=== PATIENT | female | born 1955 | race Caucasian/White ===

== ENCOUNTER 2019-05-16 08:57 | Day surgery (SDC) | payer BC, OTHER ==
[~2019-05-16] VITALS: Ht 167.6 cm; Wt 61.0 kg
[2019-05-16] VITALS (15 sets, daily range): BP systolic 108–153; BP diastolic 50–81; PULSE 56–70; RESP 16–24; Ht 167.6 cm; Wt 61.0 kg
[~2019-05-16 08:57] MED LIST: ASPI-903 PO; CEFAZOLIN 2 GM/50 ML (PMX) 50 ML IVPB ONE; SOD CHLORIDE 0.9% 1,000 ML IV SCH
[2019-05-16] MEDS ORDERED: POLYMYXIN/BACITRACIN 1L IRRIG ONE (10:02)
--- NOTE | 2019-05-16 10:10 | PREAC ---
Date/Time of Note Date/Time of Note DATE: 05/16/19 TIME: 10:09 Anesthesia Eval and Record Evaluation Time Pre-Procedure Interview DATE: 05/16/19 TIME: 10:09 Age 63 Sex female NPO: 8 hrs Preoperative diagnosis left inguinal hernia Planned procedure open left inguinal hernia with mesh Past Medical History Past Medical History: Includes Cardio: Other (EF 60%) Surgery & Anesthesia Issues No known issue Meds Anticoagulation: No Beta Forrest within 24 hr: No Reason Beta Forrest not given: Pt. not on B-Forrest Reported Medications Aspirin* (Aspirin* Chew) 81 Mg Tab.chew, 81 MG PO DAILY, TAB.CHEW 05/16/19 Current Medications Sodium Chloride 1,000 ml @ 75 mls/hr [id number] IV ; Start 05/16/19 at 06:00; Stop 05/16/19 at 20:00 Meds reviewed: Yes Allergies Coded Allergies: No Known Drug Allergy (Verified Allergy, Unknown, 05/16/19) Allergies Reviewed: Yes Labs/Studies Labs Reviewed: Reviewed by anesthesiologist test: N/A Studies: ECG (sr), CXR (hyperinflation) Pre-procedure Exam Last vitals Vital Signs Date Temp Pulse Resp B/P (MAP) Pulse Ox O2 O2 Flow FiO2 Time Delivery Rate 05/16/19 98.3 56 16 108/59 95 Room Air 09:50 (75) Airway: Adequate mouth opening Mallampati: Mallampati I Teeth: Normal Lung: Normal Heart: Normal ASA Physical Status ASA physical status: 2 Emergency: None Planned Anesthetic General/MAC: ETT Nerve block: TAP (left) Planned Pain Management Single shot nerve block, Parenteral pain med Pre-operative Attestations Prior to commencing anesthesia and surgery, the patient was re-evaluated, there was verification of: *The patient's identity *The results of appropriate recent lab work and preoperative vital signs *The above evaluation not changing prior to induction *Anesthetic plan, risk benefits, alternative and complications discussed with patient/family; questions answered; patient/family understands, accepts and wishes to proceed. BHAVESH FOSTER MD May 16, 2019 10:10
[2019-05-16] MEDS ORDERED: PROPOFOL 20 ML ONE (10:16)
[2019-05-16] MEDS ORDERED: NEOSTIGMINE 3 MG/3 ML SYRINGE ONE (10:16)
[2019-05-16] MEDS ORDERED: ROPIVACAINE 0.2% 20 ML VIAL ONE (10:16)
[2019-05-16] MEDS ORDERED: ROCURONIUM 50 MG INJ ONE (10:16)
[2019-05-16] MEDS ORDERED: GLYCOPYRROLATE 0.4 MG INJ ONE (10:16)
[2019-05-16] MEDS ORDERED: METOCLOPRAMIDE 10 MG INJ ONE (10:16)
[2019-05-16] MEDS ORDERED: ONDANSETRON 4 MG INJ ONE (10:16)
[2019-05-16] MEDS ORDERED: KETOROLAC 30 MG INJ ONE (10:17)
[2019-05-16] MEDS ORDERED: OXYCODONE/ACETAMINOPHEN (5/325) TAB PO PRN ×2 (10:30)
[2019-05-16] MEDS ORDERED: DIPHENHYDRAMINE 50 MG INJ IV PRN (10:30)
[2019-05-16] MEDS ORDERED: MEPERIDINE 25 MG INJ IV PRN (10:30)
[2019-05-16] MEDS ORDERED: ONDANSETRON 4 MG INJ IV PRN (10:30)
[2019-05-16] MEDS ORDERED: FENTAnyl 50 MCG/ML VIAL IV PRN ×3 (10:30)
[2019-05-16] MEDS ORDERED: HYDROmorphONE 1 MG/5 ML IV SYRINGE IV PRN ×2 (10:30)
[2019-05-16] MEDS ORDERED: KETOROLAC 30 MG INJ IV PRN (10:30)
[2019-05-16] MEDS ORDERED: LIDOCAINE 2% (SDV) 5 ML INJ ONE (10:41)
--- NOTE | 2019-05-16 11:27 | OPR ---
Date/Time of Note Date/Time of Note DATE: 05/16/19 TIME: 11:24 Operative Report Procedure Date: May 16, 2019 Preoperative Diagnosis left incarcerated inguinal hernia Postoperative Diagnosis same Operation/Procedure Performed open left incarcerated inguinal hernia repair with large ultrapro hernia system mesh Surgeon see signature line Script Supervisor none Anesthesia Type: general Estimated Blood Loss: 0 - 10 ml's Transfusion none Specimen hernia sac and contents Grafts/Implants none Complications none Pt Condition Post Procedure: stable Indications This is a 63-year-old female with a left incarcerated inguinal hernia. She required surgical repair. Risks alternatives benefits and personal were discussed the patient. Patient expressed understanding consents to the operation. Procedure Description Patient is taken to the OR prepped and draped in usual sterile fashion. Surgical time was performed. IV antibiotics given. Left inguinal oblique incision made with a 10 blade. Dissection with cautery skin onto externally fascia. The external fascia is open with a 15 blade. This incision extended medial fairly lateral sparely with Metzenbaum scissors. Round ligament is divided for complete reduction of the inguinal hernia. The sac is identified and opened and the sac and contents were excised and sent for specimen. The hernia was then bolstered with the disc portion of the ultra pro hernia system mesh. The disc is secured in place with a running 0 Prolene from the pubic tubercle along the shelving edge of the inguinal ligament. Superiorly the disc is hurt to the internal oblique with interrupted 3-0 Vicryl. Onlay mesh was secured in a similar fashion with a running 0 Prolene from the pubic tubercle along the shelving single limit. Sparely the onlay mesh was secured to enter oblique with interrupted 3-0 Vicryl. Externally fascia was closed with running 3-0 Vicryl. Olive's fascia was closed with interrupted 3-0 Vicryl. Skin is closed using inzorb observable skin stapler. Steri-Strips and dry dressings were applied. Rosanne GARDNER May 16, 2019 11:27
[2019-05-16] MEDS ORDERED: HYDROCODONE/APAP (5/325) TAB PO ONE (11:30)
[2019-05-16] MEDS: HYDROmorphONE 1 MG/5 ML IV SYRINGE IV PRN ×2 (11:31→12:03)
--- NOTE | 2019-05-16 12:27 | PAC ---
Date/Time of Note Date/Time of Note DATE: 05/16/19 TIME: 12:27 Post-Anesthesia Notes Post-Anesthesia Note Last documented vital signs Vital Signs Date Temp Pulse Resp B/P (MAP) Pulse Ox O2 O2 Flow FiO2 Time Delivery Rate 05/16/19 97.8 64 24 139/73 100 Room Air 12:03 (95) 05/16/19 8.0 11:30 05/16/19 97.7 11:28 Activity: WNL Respiratory function: WNL Cardiovascular function: WNL Mental status: Baseline Pain reasonably controlled: Yes Hydration appropriate: Yes Nausea/Vomiting absent: No BHAVESH FOTSER MD May 16, 2019 12:27
== END 2019-05-16 13:35 | disposition home or self-care (01) ==
LOC: SDS 08:57
PROVIDERS: ATTEND Surgery
DX: K40.90 Unilateral inguinal hernia, without obstruction or gangrene, not specified as recurrent (principal)
CPT/HCPCS: 49507; J1170; J1885; J2405; J2710; J2765; J2795; Z7610; 88302; C1781